=== PATIENT | female | born 1950 | race Caucasian/White ===

== ENCOUNTER 2025-03-26 11:07 | Outpatient (CLI) | payer MEDICARE, OTHER ==
[~2025-03-26 11:07] MED LIST: IBUP-1573 PO
--- NOTE | 2025-03-26 13:45 | RADIOLOGY REPORT ---
CLINICAL INDICATION: 74 years old, Female; PAIN IN LEFT KNEE. TECHNIQUE: Multiplanar, multisequence MRI of the left knee was performed without contrast. Contrast: None. COMPARISON: None FINDINGS: Joint space and synovium: There is small knee joint effusion. There is no synovitis. There is a Bake r's cyst which measures 3.3 cm. Another in the house. Bones and articular cartilage: There is no evidence of acute fracture or bone marrow edema. The ali gnment is normal. The articular cartilage is preserved in the patellofemoral compartment. There is moderate grade chondral loss in the medial femoral condyle in the medial tibial plateau. Diffuse ch ondral thinning on both sides of the lateral compartment. Menisci: There is a radials tear of the posterior horn of the medial meniscus. The posterior root is also torn, allowing for the body to displaced medially into the medial gutter, abutting the medial c ollateral ligament. The lateral meniscus is intact. Tendons and ligaments: The tendons in the posterior knee are intact. The extensor mechanism is inta ct. The anterior cruciate ligament is intact. The posterior cruciate ligament is intact. The m edial collateral ligament and the lateral collateral ligament stabilizing complex are intact. Perilig amentous edema surrounding the medial collateral ligament. Muscles: Regional muscles are preserved in bulk and signal characteristics. Other: Nonspecific prepatellar soft tissue edema. IMPRESSION: 1. Radial tear of the posterior horn of the medial meniscus. Posterior root tear with slight displac ement of the body segment into the medial gutter. 2. Medial collateral ligament periligamentous edema may be reactive to the meniscus tear, however MCL sprain is not excluded. Joint effusion and Guadarrama's cyst. Nonspecific prepatellar subcutaneous edema . HS:Y
== END 2025-03-26 23:59 | disposition home or self-care (01) ==
LOC: MRI02 11:07
PROVIDERS: ATTEND Physician Assistant
DX: S83.241A Other tear of medial meniscus, current injury, right knee, initial encounter (principal); M25.562 Pain in left knee; M71.22 Synovial cyst of popliteal space [Baker], left knee; R60.0 Localized edema; X58.XXXA Exposure to other specified factors, initial encounter; Y93.89 Activity, other specified; Y92.89 Other specified places as the place of occurrence of the external cause; Y99.8 Other external cause status
CPT/HCPCS: 73721